=== PATIENT | female | born 1975 | race Caucasian/White ===

== ENCOUNTER 2019-01-21 08:52 | Day surgery (SDC) | payer OTHER ==
[2019-01-21 09:47] LABS: ADD MAN DIFF? NO
[2019-01-21 09:58] LABS: BASOPHIL # 0.1 10^3/ul (0.0-0.1); EOSINOPHILS # 0.1 10^3/ul (0.0-0.5); EOSINOPHILS % 1.8 % (0.0-7.0); HEMATOCRIT 42.2 % (37.0-47.0); HEMOGLOBIN 14.3 g/dl (12.0-16.0); LYMPHOCYTES # 2.3 10^3/ul (0.8-2.9); LYMPHOCYTES % 32.3 % (15.0-51.0); MEAN CORPUSCULAR HGB CONC 33.9 g/dl (32.0-37.0); MEAN CORPUSCULAR VOLUME 91.5 fl (82.0-101.0); MONOCYTE # 0.6 10^3/ul (0.3-0.9); MONOCYTES % 7.9 % (0.0-11.0); NEUTROPHIL # 4.1 10^3/ul (1.6-7.5); NEUTROPHILS % 56.4 % (39.0-77.0); PLATELET COUNT 323 10^3/UL (140-415); RED BLOOD COUNT 4.61 10^6/ul (4.20-5.40); RED CELL DISTRIBUTION WIDTH 13.5 % (11.5-14.5)
[2019-01-21 09:58] LABS: WHITE BLOOD COUNT 7.3 10^3/ul (4.8-10.8)
[2019-01-21 10:18] LABS: INR 1.02; PROTIME 13.5 Sec (11.9-14.9); PT RATIO 1.1
[2019-01-21 10:19] LABS: PARTIAL THROMBOPLASTIN TIME 28.6 Sec (23.0-35.0)
[2019-01-21 10:24] LABS: ANION GAP 7 (5-13); BLOOD UREA NITROGEN 10 mg/dl (7-20); CALCIUM 9.3 mg/dl (8.4-10.2); CARBON DIOXIDE 27 mmol/L (21-31); CHLORIDE 106 mmol/L (97-110); CREATININE 0.56 mg/dl (0.44-1.00); Estimated GFR > 60 mL/min (>60); GLUCOSE 97 mg/dl (70-220); POTASSIUM 4.1 mmol/L (3.5-5.1); SODIUM 140 mmol/L (135-144)
[2019-01-21] MEDS ORDERED: LIDOCAINE 1%/EPI (1:100,000) (MDV) 20 ML (12:50)
[2019-01-21] MEDS ORDERED: CEFAZOLIN 1 GM INJ (12:57)
[2019-01-21] MEDS ORDERED: LIDOCAINE 2% (SDV) 5 ML INJ (12:57)
[2019-01-21] MEDS ORDERED: METOCLOPRAMIDE 10 MG INJ (12:57)
[2019-01-21] MEDS ORDERED: ONDANSETRON 4 MG INJ (12:57)
[2019-01-21] MEDS ORDERED: SUCCINYLCHOLINE CHLORIDE 100 MG/5 ML SYG IV (12:57)
[2019-01-21] MEDS ORDERED: PROPOFOL 20 ML (12:57)
[2019-01-21] MEDS ORDERED: SEVOFLURANE 15 MIN (12:57)
[2019-01-21] MEDS ORDERED: ROCURONIUM 50 MG INJ (12:57)
[2019-01-21] MEDS: BUPIVACAINE 0.25%/EPI (SDV) 10 ML INJ (13:29)
[2019-01-21] MEDS ORDERED: OXYCODONE/ACETAMINOPHEN (5/325) TAB PO ×2 (13:30)
[2019-01-21] MEDS ORDERED: METOCLOPRAMIDE 10 MG INJ IV (13:30)
[2019-01-21] MEDS ORDERED: MIDAZOLAM 1 MG/ML 2 ML INJ IV (13:30)
[2019-01-21] MEDS ORDERED: ONDANSETRON 4 MG INJ IV (13:30)
[2019-01-21] MEDS ORDERED: DIPHENHYDRAMINE 50 MG INJ IV (13:30)
[2019-01-21] MEDS ORDERED: FENTAnyl 50 MCG/ML VIAL IV ×3 (13:30)
[2019-01-21] MEDS ORDERED: MEPERIDINE 25 MG INJ IV (13:30)
== END 2019-01-21 15:37 | disposition home or self-care (01) ==
LOC: SDS 08:52
DX: K14.8 Other diseases of tongue (principal)
CPT/HCPCS: 41110; 71045; 80048; 85025; 85610; 85730; 88305; 88312

== ENCOUNTER 2019-02-03 10:00 | Emergency (ER) | payer OTHER ==
[2019-02-03] MEDS: ACETAMINOPHEN 500 MG TAB PO (11:37)
== END 2019-02-03 11:37 | disposition home or self-care (01) ==
LOC: FTE 10:00
DX: Z48.01 Encounter for change or removal of surgical wound dressing (principal)
CPT/HCPCS: 99282; Z7502